=== PATIENT | male | born 1955 | race Caucasian/White ===

== ENCOUNTER 2018-05-18 14:28 | Inpatient (IN) | payer BC, SELFPAY ==
[2018-05-18] MEDS ORDERED: ACETAMINOPHEN 500 MG TAB PO PRN (15:22)
[2018-05-18] MEDS ORDERED: ONDANSETRON 4 MG/2 ML VIAL IV PRN (15:22)
[2018-05-18] MEDS ORDERED: IPRATROPIUM BROM 0.5MG/2.5ML NEB PRN (15:22)
[2018-05-18] MEDS ORDERED: ALBUTEROL 2.5 MG/3 ML NEB SOL NEB PRN (15:22)
[2018-05-18] MEDS ORDERED: LORazepam 2 MG/ML VIAL IV PRN (15:29)
[2018-05-18 15:57] VITALS: BMI 27.6
[2018-05-18] MEDS: NA CHLORIDE 0.9% 1,000 ML IV SCH (16:28)
[2018-05-18] MEDS: NICOTINE 21 MG/PAT TD SCH (16:28)
[2018-05-18] MEDS: ENOXAPARIN 40 MG/0.4 ML SQ SCH (16:28)
[2018-05-18] MEDS: PANTOPRAZOLE 40MG TABLET PO SCH (16:29)
[2018-05-18 16:48] LABS: ALT/SGPT 43 U/L (12-78); AST/SGOT 48 U/L (15-37); Alkaline Phosphatase 109 U/L (45-117); BUN Blood Urea Nitrogen 9 mg/dL (7-18); Bicarbonate 28 mmol/L (21-32); Bilirubin Total 0.9 mg/dL (0.2-1.0); CKMB Creatine Kinase MB 2.4 ng/mL (0.3-3.6); Creatine Phosphokinase 90 U/L (39-308); Glucose Level 120 mg/dL (74-106); Magnesium 2.2 mg/dL (1.8-2.4); Potassium 4.1 mmol/L (3.5-5.1); Protein, Total 8.3 g/dL (6.4-8.2); Sodium Level 140 mmol/L (136-145)
--- NOTE | 2018-05-18 16:58 | P.HP ---
Certification for Inpatient Patient admitted to: Observation With expected LOS: <2 Midnights Patient will require the following post-hospital care: None Practitioner: I am a practitioner with admitting privileges, knowledge of patient current condition, hospital course, and medical plan of care. Services: Services provided to patient in accordance with Admission requirements found in Title 42 Section 412.3 of the Code of Federal Regulations Patient History Date of Service: 05/18/18 Primary Care Provider: None Reason for admission: Left arm numbness History of Present Illness: 63-year-old male presented to outpatient emergency [facility] with numbness to the left arm. Patient denied any chest pain, shortness of breath, weakness or slurred speech. Symptoms occurred around 8:00 a.m.. He did not go to the emergency room until about 12 o'clock. Patient was evaluated at the facility. Initial CT scan unremarkable. Due to his multiple risk factors of alcohol and tobacco abuse patient was direct admitted for further evaluation. Patient had elevated blood pressure at the facility. ER physician did speak with Neurology who recommended direct admission. When I saw the patient, patient still reported some left arm numbness. No weakness noted. Patient was appropriate. Patient with history of alcohol and tobacco abuse. He drinks about 8 beers a day and smokes about 1-2 packs per day. Patient takes aspirin daily. Allergies No Known Allergies Allergy (Verified 05/18/18 15:36) Home Medications: Aspirin Chewable [Aspirin Chewable*] 1 tab PO DAILY 05/18/18 - Past Medical/Surgical History Has patient received pneumonia vaccine in the past: No Diabetic: No -: Cataracts -: Tobacco abuse -: Alcohol abuse -: Cataract sx Psychosocial/ Personal History: Patient is . He has 4 children. He works construction - Family History Mother -: Cancer - Social History Smoking Status: Current every day smoker Counseled patient to stop smoking for: less than 10 minutes Smoking therapy provided: Yes Patient receptive to therapy: Yes Alcohol use: Yes CD- Drugs: No Caffeine use: Yes Place of Residence: Home Review of Systems General: As per HPI Eyes: Unremarkable ENT: Unremarkable Respiratory: Unremarkable Cardiovascular: Unremarkable Gastrointestinal: Unremarkable Genitourinary: Unremarkable Musculoskeletal: Unremarkable Integumentary: Unremarkable Neurological: Numbness, As per HPI Lymphatics: Unremarkable Physical Examination - Vital Signs Temperature: 97.2 F Blood Pressure: 174/88 Pulse: 66 Respirations: 18 Pulse Ox (%): 95 - Physical Exam General: Alert, In no apparent distress, Oriented x3, Cooperative HEENT: Atraumatic, Normocephalic, PERRLA, Mucous membr. moist/pink Neck: Supple, No Thyromegaly Respiratory: Clear to auscultation bilaterally, Normal air movement Cardiovascular: Normal pulses, Regular rate/rhythm Gastrointestinal: Normal bowel sounds, Soft and benign, Non-distended, No tenderness, No masses, No rebound, No guarding Musculoskeletal: No erythema, No tenderness, No warmth Integumentary: No tenderness/swelling, No erythema, No warmth, No cyanosis Neurological: Normal speech, Normal strength at 5/5 x4 extr, Normal tone, Normal affect - Studies Laboratory Data (last 24 hrs) 05/18/18 16:00: Troponin I < 0.02 05/18/18 16:00: Sodium 140, Potassium 4.1, BUN 9, Creatinine 0.80, Glucose 120 H , Magnesium 2.2, Total Bilirubin 0.9, AST 48 H, ALT 43, Alkaline Phosphatase 109 Assessment and Plan - Problems (Diagnosis) (1) Numbness Current Visit: Yes Status: Acute Plan: Left arm numbness noted. Will order stroke protocol MRI, echocardiogram and carotid Doppler to further evaluate. Neurology is aware of the patient. Await further recommendations from neurology. The patient has been taking aspirin at home. Will continue with aspirin 81 mg daily. Will add Plavix, Lipitor and Lovenox. Will continue to monitor and reassess. (2) Hypertension Current Visit: Yes Status: Chronic Plan: Pressure elevated. Will start low-dose lisinopril Qualifiers: Hypertension type: essential hypertension Qualified Code(s): I10 - Essential (primary) hypertension (3) Alcohol abuse Current Visit: Yes Status: Chronic Plan: Will monitor for alcohol withdrawal. Will provide medication as needed. (4) Tobacco abuse Current Visit: Yes Status: Chronic Plan: Will address tobacco cessation in detail. Will provide nicotine patch. Discharge Plan: Home Plan to discharge in: 24 Hours - Advance Directives Does patient have a Living Will: No Does patient have a Durable POA for Healthcare: No - Code Status/Comfort Care Code Status Assessed: Yes (Patient full code.) Time Spent Managing Pts Care (In Minutes): 55
[2018-05-18 17:01] LABS: Absolute Monocytes 0.5 K/uL (0.1-1.3); Basophils % 0.6 % (0-1.3); Eosinophils % 6.6 % (0-4.4); Hematocrit 49.2 % (39.6-49.0); MCH 33.5 pg (27.0-35.0); MCV 98.4 fL (80-100); MPV 10.5 fL (7.6-11.3); Monocytes % 9.4 % (3.3-12.3)
--- NOTE | 2018-05-18 19:03 | RAD REPORT ---
EXAM DESCRIPTION: MRI - Brain W/Wo Cont - 05/18/2018 6:35 pm CLINICAL HISTORY: Left arm numbness since this morning COMPARISON: None TECHNIQUE: Axial, sagittal, and coronal magnetic images of the brain were obtained. 20 cc MultiHance is administered intravenously FINDINGS: Mild signal within periventricular and deep white matter likely represent ischemic changes secondary to small vessel disease. Diffusion-weighted/ADC mapping demonstrates a 3 millimeter area of abnormal signal compatible with an acute infarction. . The ventricles are normal caliber. No abnormal enhancement within the brain is seen. An extra-axial fluid collection is not noted. 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 May 18, 2018
--- NOTE | 2018-05-18 19:09 | RAD REPORT ---
EXAM DESCRIPTION: MRI - MRA Neck W/Wo Cont - 05/18/2018 6:35 pm CLINICAL HISTORY: Left arm numbness COMPARISON: None. TECHNIQUE: Magnetic resonance angiogram of the neck was performed. 20 cc MultiHance is administered intravenously. 3D MIP reconstruction was performed FINDINGS: The common carotid, internal carotid and external carotid arteries do not demonstrate a si gnificant stenosis. An aneurysm is not seen. The vertebral arteries are codominant without visualization of an abnormality. IMPRESSION: No significant abnormality is displayed
--- NOTE | 2018-05-18 19:11 | RAD REPORT ---
EXAM DESCRIPTION: MRI - MRA Head Wo Cont - 05/18/2018 6:34 pm CLINICAL HISTORY: Left arm numbness COMPARISON: None. TECHNIQUE: Magnetic resonance angiogram of the head was performed. 3D MIP reconstruction was performed FINDINGS: The visualized anterior cerebral, middle cerebral, posterior cerebral, basilar and distal internal carotid arteries do not demonstrate a significant stenosis. The A1 segment of the right ante rior cerebral artery is hypoplastic An aneurysm is not seen IMPRESSION: Unremarkable MRA head
--- NOTE | 2018-05-18 19:13 | RAD REPORT ---
EXAM DESCRIPTION: USCAROTID ARTERY BILATERAL05/18/2018 7:06 pm CLINICAL HISTORY: Left arm numbness FINDINGS: The velocity of the right internal carotid artery equals 116 cm/sec. The right ICA/CCA rat io 1.2 The velocity of the left internal carotid artery equals 123 cm/sec. The left ICA/CCA ratio 1.6 Mild plaque is present within the carotid arteries. The vertebral arteries demonstrate antegrade flow IMPRESSION: Mild plaque within the carotid arteries without evidence of a hemodynamically significan t stenosis
[2018-05-18] MEDS ORDERED: LISINOPRIL 5 MG TAB PO SCH (21:00)
[2018-05-18] MEDS ORDERED: ATORVASTATIN 40 MG TAB PO SCH (21:00)
--- NOTE | 2018-05-18 22:29 | RAD REPORT ---
EXAM DESCRIPTION: RADJuliat Pa And Lat (2 Views)05/18/2018 7:14 pm CLINICAL HISTORY: Cough COMPARISON: None FINDINGS: Small bilateral pulmonary nodules are suspected. A lung consolidation is not seen. The he art is normal size IMPRESSION: Small bilateral pulmonary nodules are suspected. CT chest is recommended for further jovan luation
[2018-05-19 04:20] LABS: Absolute Monocytes 0.5 K/uL (0.1-1.3); Absolute Neutrophil 3.3 K/uL (1.8-8.0); Basophils % 0.4 % (0-1.3); Eosinophils % 8.2 % (0-4.4); Lymphocytes % 18.9 % (15.3-44.8); MCH 34.2 pg (27.0-35.0); MCV 98.6 fL (80-100); MPV 9.7 fL (7.6-11.3); Monocytes % 8.9 % (3.3-12.3); RBC Red Blood Cell Count 4.56 M/uL (4.33-5.43)
[2018-05-19 04:34] LABS: BUN Blood Urea Nitrogen 11 mg/dL (7-18); Bicarbonate 28 mmol/L (21-32); Glucose Level 118 mg/dL (74-106); HDL Cholesterol 28 mg/dL (40-60); LDL Cholesterol, Calculated 51 (<130); Magnesium 1.9 mg/dL (1.8-2.4); Sodium Level 140 mmol/L (136-145)
[2018-05-19] MEDS: NA CHLORIDE 0.9% 1,000 ML IV SCH (05:07)
[2018-05-19 08:18] VITALS: BP 137/78; TEMP 97.3
[2018-05-19 08:24] VITALS: O2SAT 93
--- NOTE | 2018-05-19 08:42 | P.PN ---
Subjective Date of Service: 05/19/18 Primary Care Provider: None Chief Complaint: Left arm numbness Subjective: Improving Physical Examination - Vital Signs Temperature: 97.3 F Blood Pressure: 137/78 Pulse: 70 Respirations: 17 Pulse Ox (%): 92 - Physical Exam General: Alert, In no apparent distress, Oriented x3, Cooperative HEENT: Atraumatic Neck: Supple Respiratory: Clear to auscultation bilaterally, Normal air movement Cardiovascular: Normal pulses, Regular rate/rhythm Gastrointestinal: Normal bowel sounds, Soft and benign, Non-distended, No tenderness, No masses, No rebound, No guarding Musculoskeletal: No erythema, No tenderness, No warmth Integumentary: No tenderness/swelling, No erythema, No warmth, No cyanosis Neurological: Normal speech, Normal strength at 5/5 x4 extr, Normal affect, Abnormal sensation (Numbness to the left upper extremity still noted) - Studies Laboratory Data (last 24 hrs) 05/19/18 04:06: Sodium 140, Potassium 4.0, BUN 11, Creatinine 0.80, Glucose 118 H, Magnesium 1.9, Triglycerides 115, Cholesterol 102, HDL Cholesterol 28 L, Cholesterol/HDL Ratio 3.64 05/19/18 04:06: WBC 5.1, Hgb 15.6, Hct 45.0, Plt Count 81 L 05/18/18 16:00: Troponin I < 0.02 05/18/18 16:00: Sodium 140, Potassium 4.1, BUN 9, Creatinine 0.80, Glucose 120 H , Magnesium 2.2, Total Bilirubin 0.9, AST 48 H, ALT 43, Alkaline Phosphatase 109 05/18/18 16:00: WBC 4.9, Hgb 16.7, Hct 49.2 H, Plt Count 96 L Medications List Reviewed: Yes Assessment & Plan - Problems (Diagnosis) (1) Numbness Current Visit: Yes Status: Acute Plan: Left arm numbness noted. MRI showed 3 mm acute infarct involving the right thalamus. MRA and carotid Doppler showed no acute stenosis. Echocardiogram pending. Patient now on aspirin, Plavix, statin medication, and blood pressure medication. Patient on DVT prophylaxis Lovenox. Will physical therapy assess ambulation. Neurology consulted. Await further recommendations. Patient desires to go home. Will consider discharge if okay with neurology. (2) Hypertension Current Visit: Yes Status: Chronic Plan: Patient started on low-dose lisinopril Qualifiers: Hypertension type: essential hypertension Qualified Code(s): I10 - Essential (primary) hypertension (3) Alcohol abuse Current Visit: Yes Status: Chronic Plan: Will monitor for alcohol withdrawal. Continue to address alcohol cessation (4) Tobacco abuse Current Visit: Yes Status: Chronic Plan: Will continue to address tobacco cessation (5) Pulmonary nodules Current Visit: Yes Status: Chronic Plan: Chest x-ray showed pulmonary nodules. CT recommended. Will order CT to further assess. Patient likely has underlying COPD. Patient will need pulmonary function test as an outpatient to further assess. (6) Thrombocytopenia Current Visit: Yes Status: Acute Plan: Etiology unknown. Likely chronic in nature. Will send for peripheral smear. Discharge Plan: Home Plan to discharge in: 24 Hours Time Spent Managing Pts Care (In Minutes): 55
[2018-05-19] MEDS ORDERED: THIAMINE HCL 100 MG TABLET PO SCH (09:00)
[2018-05-19] MEDS ORDERED: FOLIC ACID 1 MG TABLET PO SCH (09:00)
[2018-05-19] MEDS ORDERED: CLOPIDOGREL 75 MG TABLET PO SCH (09:00)
[2018-05-19] MEDS: ENOXAPARIN 40 MG/0.4 ML SQ SCH (09:00)
[2018-05-19] MEDS ORDERED: ASPIRIN EC 81 MG TAB PO SCH (09:00)
--- NOTE | 2018-05-19 10:27 | RAD REPORT ---
EXAM DESCRIPTION: CT - Thorax Wo Con - 05/19/2018 9:51 am CLINICAL HISTORY: Abnormal chest film, possible pulmonary nodules. COMPARISON: None. TECHNIQUE: Axial 5 mm thick images of the chest were obtained without IV contrast. All CT scans are performed using dose optimization technique as appropriate and may include automated exposure control or mA/KV adjustment according to patient size. FINDINGS: Several small calcified granulomas are scattered in the lung parenchyma. No noncalcified m ass or worrisome mass of the lung parenchyma. No focal consolidation. Patient has mild to moderate em physema change scattered in the lung parenchyma. No pleural thickening or pleural effusion. No pneumo thorax. Numerous calcified mediastinal and hilar lymph nodes are present. No gross aortic or pulmonary artery finding suspected. No cardiomegaly or pericardial effusion. No chest wall mass or abnormal axillary lymphadenopathy. Thoracic spine degenerative changes are pres ent. Limited imaging of the upper abdomen shows grossly abnormal liver. Caudate and left lobe regions are enlarged and there is a diffuse nodularity to the liver capsule. No focal liver lesions seen. This is not a full assessment of the liver. Spleen is upper normal. Circumferential wall thickening of the e ntire esophagus is noted. A discrete esophageal mass is not seen. A few prominent veins are seen near the GE junction. IMPRESSION: Patient has extensive old granulomatous disease seen as lung parenchymal calcified nodul es and numerous calcified mediastinal and hilar lymph nodes. No worrisome lung parenchymal mass or lymphadenopathy. The patient has mild to moderate emphysema ivett nge throughout the lung parenchyma. Advanced cirrhotic changes in the liver. Spleen is upper normal and there are a few prominent veins a t the GE junction. Mild circumferential wall thickening along the entire length of the esophagus. No focal esophageal ma ss.
[2018-05-19] MEDS: PANTOPRAZOLE 40MG TABLET PO SCH (10:45)
[2018-05-19] MEDS: NICOTINE 21 MG/PAT TD SCH (10:45)
--- NOTE | 2018-05-19 12:57 | P.DS ---
Admission Date: 05/19/18 Discharge Date: 05/19/18 Primary Care Provider: None Disposition: ROUTINE DISCHARGE Discharge Condition: GOOD Reason for Admission: Left arm numbness Procedures: MRI brain: FINDINGS: Mild signal within periventricular and deep white matter likely represent ischemic changes secondary to small vessel disease. Diffusion-weighted/ADC mapping demonstrates a 3 millimeter area of abnormal signal compatible with an acute infarction. . The ventricles are normal caliber. No abnormal enhancement within the brain is seen. An extra-axial fluid collection is not noted. Moderate ethmoid sinusitis is present IMPRESSION: 3 millimeter acute infarct involving the right thalamus MRA brain: FINDINGS: The common carotid, internal carotid and external carotid arteries do not demonstrate a significant stenosis. An aneurysm is not seen. The vertebral arteries are codominant without visualization of an abnormality. IMPRESSION: No significant abnormality is displayed FINDINGS: The visualized anterior cerebral, middle cerebral, posterior cerebral , basilar and distal internal carotid arteries do not demonstrate a significant stenosis. The A1 segment of the right anterior cerebral artery is hypoplastic An aneurysm is not seen IMPRESSION: Unremarkable MRA head Echocardiogram: Done. Final results pending at discharge Carotid Doppler: FINDINGS: The velocity of the right internal carotid artery equals 116 cm/sec. The right ICA/CCA ratio 1.2 The velocity of the left internal carotid artery equals 123 cm/sec. The left ICA /CCA ratio 1.6 Mild plaque is present within the carotid arteries. The vertebral arteries demonstrate antegrade flow IMPRESSION: Mild plaque within the carotid arteries without evidence of a hemodynamically significant stenosis CT chest: COMPARISON: None. TECHNIQUE: Axial 5 mm thick images of the chest were obtained without IV contrast. All CT scans are performed using dose optimization technique as appropriate and may include automated exposure control or mA/KV adjustment according to patient size. FINDINGS: Several small calcified granulomas are scattered in the lung parenchyma. No noncalcified mass or worrisome mass of the lung parenchyma. No focal consolidation. Patient has mild to moderate emphysema change scattered in the lung parenchyma. No pleural thickening or pleural effusion. No pneumothorax. Numerous calcified mediastinal and hilar lymph nodes are present. No gross aortic or pulmonary artery finding suspected. No cardiomegaly or pericardial effusion. No chest wall mass or abnormal axillary lymphadenopathy. Thoracic spine degenerative changes are present. Limited imaging of the upper abdomen shows grossly abnormal liver. Caudate and left lobe regions are enlarged and there is a diffuse nodularity to the liver capsule. No focal liver lesions seen. This is not a full assessment of the liver. Spleen is upper normal. Circumferential wall thickening of the entire esophagus is noted. A discrete esophageal mass is not seen. A few prominent veins are seen near the GE junction. IMPRESSION: Patient has extensive old granulomatous disease seen as lung parenchymal calcified nodules and numerous calcified mediastinal and hilar lymph nodes. No worrisome lung parenchymal mass or lymphadenopathy. The patient has mild to moderate emphysema change throughout the lung parenchyma. Advanced cirrhotic changes in the liver. Spleen is upper normal and there are a few prominent veins at the GE junction. Mild circumferential wall thickening along the entire length of the esophagus. No focal esophageal mass. - Problems (1) Numbness Current Visit: Yes Status: Acute (2) Hypertension Current Visit: Yes Status: Chronic Qualifiers: Hypertension type: essential hypertension Qualified Code(s): I10 - Essential (primary) hypertension (3) Alcohol abuse Current Visit: Yes Status: Chronic (4) Tobacco abuse Current Visit: Yes Status: Chronic (5) Pulmonary nodules Current Visit: Yes Status: Chronic (6) Thrombocytopenia Current Visit: Yes Status: Acute (7) CVA (cerebral vascular accident) Current Visit: Yes Status: Acute Qualifiers: CVA mechanism: other Qualified Code(s): I63.8 - Other cerebral infarction (8) GERD with esophagitis Current Visit: Yes Status: Suspected (9) Cirrhosis Current Visit: Yes Status: Chronic Qualifiers: Hepatic cirrhosis type: alcoholic cirrhosis Ascites presence: without ascites Qualified Code(s): K70.30 - Alcoholic cirrhosis of liver without ascites (10) COPD (chronic obstructive pulmonary disease) Current Visit: Yes Status: Suspected Qualifiers: COPD type: chronic bronchitis Brief History of Present Illness: 63-year-old male presented to outpatient emergency room-[place] with numbness to the left arm. Patient denied any chest pain, shortness of breath, weakness or slurred speech. Symptoms occurred around 8:00 a.m.. He did not go to the emergency room until about 12 o'clock. Patient was evaluated at the facility. Initial CT scan unremarkable. Due to his multiple risk factors of alcohol and tobacco abuse patient was direct admitted for further evaluation. Patient had elevated blood pressure at the facility. ER physician did speak with Neurology who recommended direct admission. When I saw the patient, patient still reported some left arm numbness. No weakness noted. Patient was appropriate. Patient with history of alcohol and tobacco abuse. He drinks about 8 beers a day and smokes about 1-2 packs per day. Patient takes aspirin daily. Hospital Course: Patient presented with left arm numbness. Patient evaluated for CVA. Patient had MRI done showing 3 mm acute infarct involving the right thalamus. Patient previously on aspirin 81 mg daily. Patient with history of alcohol and tobacco abuse. Patient did well in the course of his stay. Case discussed in detail with Neurology. Echocardiogram done and was pending at discharge. Carotid Doppler showed no acute stenosis but plaque noted. MRA of brain and neck showed no significant stenosis. At discharge patient will need continue with aspirin 81 mg daily and Plavix 75 mg 1 pill daily. Alcohol and tobacco cessation was addressed in detail. Patient will also continue with folic acid 1 mg daily and thiamine 100 mg daily. Recommendation is for the patient follow up with neurology as an outpatient to further monitor. Patient has hypertension. Initial blood pressures were elevated. Medication started during his stay. At discharge he will continue with lisinopril 5 mg 1 pill daily. Recommendation is to maintain blood pressures less 150/80. Further adjustment can be done by his PCP. Patient started on statin medication due to CVA and carotid arterial disease. At discharge patient will continue with Lipitor 40 mg daily. Further adjustment in medication may be required as the patient has liver cirrhosis related to alcohol. Recommendation to recheck lab-CMP in 1 week to monitor his progress. Patient found to have liver cirrhosis likely from alcohol abuse. Patient drinks heavily. Recommendation is to wean off alcohol entirely. Lab hepatitis panel will be obtained prior to discharge. Follow up will be important. Recommendation is for the patient to follow up with GI as an outpatient to further monitor and address. Education on cirrhosis with provided. Patient found to have pulmonary nodules. CT scan showed chronic changes but no significant abnormality or mass. Patient likely has underlying COPD. Recommendations for the patient to follow up with pulmonology as an outpatient to further assess. Patient may require pulmonary function tests as he may require medication for COPD in the future. Patient will be provided Pro air 2 puffs 3 times a day as needed for shortness of breath. Tobacco cessation addressed in detail. Patient had thrombocytopenia likely from his alcoholic cirrhosis. Recommendation is to recheck CBC in 1 week further monitor. Patient will be on aspirin and Plavix, so this will need to be monitored. Patient also had thickening to the esophagus likely esophagitis with GERD noted on CT scan. With his alcohol history, it will be important for the patient to follow up with GI as an outpatient. Recommendations for the patient follow up with GI for possible EGD evaluation. At discharge patient will continue with Protonix 40 mg 1 pill once daily. Vital Signs/Physical Exam: Temp Pulse Resp BP Pulse Ox 97.3 F 70 17 137/78 92 05/19/18 08:42 05/19/18 08:42 05/19/18 08:42 05/19/18 08:42 05/19/18 08:42 General: Alert, In no apparent distress, Oriented x3, Cooperative HEENT: Atraumatic, Mucous membr. moist/pink Neck: Supple Respiratory: Clear to auscultation bilaterally, Normal air movement Cardiovascular: Normal pulses, Regular rate/rhythm Gastrointestinal: Normal bowel sounds, Soft and benign, Non-distended, No tenderness, No masses, No rebound, No guarding Musculoskeletal: No erythema, No tenderness, No warmth Integumentary: No tenderness/swelling, No erythema, No warmth, No cyanosis Neurological: Normal speech, Normal strength at 5/5 x4 extr, Normal tone, Normal affect, Abnormal sensation (Numbness to the left upper extremity) Laboratory Data at Discharge: WBC 5.1 K/uL (4.3-10.9) 05/19/18 04:06 Hgb 15.6 g/dL (13.6-17.9) 05/19/18 04:06 Hct 45.0 % (39.6-49.0) 05/19/18 04:06 Plt Count 81 K/uL (152-406) L 05/19/18 04:06 Sodium 140 mmol/L (136-145) 05/19/18 04:06 Potassium 4.0 mmol/L (3.5-5.1) 05/19/18 04:06 BUN 11 mg/dL (7-18) 05/19/18 04:06 Creatinine 0.80 mg/dL (0.55-1.3) 05/19/18 04:06 Glucose 118 mg/dL (74-106) H 05/19/18 04:06 Magnesium 1.9 mg/dL (1.8-2.4) 05/19/18 04:06 Total Bilirubin 0.9 mg/dL (0.2-1.0) 05/18/18 16:00 AST 48 U/L (15-37) H 05/18/18 16:00 ALT 43 U/L (12-78) 05/18/18 16:00 Alkaline Phosphatase 109 U/L (45-117) 05/18/18 16:00 Troponin I < 0.02 ng/mL (0.0-0.045) 05/18/18 16:00 Triglycerides 115 mg/dL (<150) 05/19/18 04:06 Cholesterol 102 mg/dL (<200) 05/19/18 04:06 HDL Cholesterol 28 mg/dL (40-60) L 05/19/18 04:06 Cholesterol/HDL Ratio 3.64 05/19/18 04:06 Home Medications: Albuterol Sulfate [Proair Hfa] 8.5 gm IH TID PRN #1 [id number].[email or web address] 05/19/18 Aspirin Chewable [Aspirin Chewable*] 1 tab PO DAILY #30 tab.chew 05/19/18 Atorvastatin Calcium [Lipitor] 40 mg PO BEDTIME #30 tab 05/19/18 Clopidogrel Bisulfate [Plavix*] 75 mg PO DAILY #30 tablet 05/19/18 Folic Acid 1 mg PO DAILY #30 tablet 05/19/18 Lisinopril [Prinivil*] 5 mg PO BEDTIME #30 tab 05/19/18 Pantoprazole [Protonix Tab*] 40 mg PO ACB #30 tab 05/19/18 Thiamine HCl [Vitamin B-1*] 100 mg PO DAILY #30 tablet 05/19/18 New Medications: Albuterol Sulfate [Proair Hfa] 8.5 gm IH TID PRN #1 hfa.[email or web address] PRN Reason: Shortness Of Breath Aspirin Chewable [Aspirin Chewable*] 1 tab PO DAILY #30 tab.chew Atorvastatin Calcium [Lipitor] 40 mg PO BEDTIME #30 tab Clopidogrel Bisulfate [Plavix*] 75 mg PO DAILY #30 tablet Folic Acid 1 mg PO DAILY #30 tablet Lisinopril [Prinivil*] 5 mg PO BEDTIME #30 tab Pantoprazole [Protonix Tab*] 40 mg PO ACB #30 tab Thiamine HCl [Vitamin B-1*] 100 mg PO DAILY #30 tablet Patient Discharge Instructions: 1. Patient will need to establish care with a PCP to follow up this hospitalization. 2. Patient presented with left arm numbness. Patient evaluated for CVA. Patient had MRI done showing 3 mm acute infarct involving the right thalamus. Patient previously on aspirin 81 mg daily. Patient with history of alcohol and tobacco abuse. Patient did well in the course of his stay. Case discussed in detail with Neurology. Echocardiogram done and was pending at discharge. Carotid Doppler showed no acute stenosis but plaque noted. MRA of brain and neck showed no significant stenosis. At discharge patient will need continue with aspirin 81 mg daily and Plavix 75 mg 1 pill daily. Alcohol and tobacco cessation was addressed in detail. Patient will also continue with folic acid 1 mg daily and thiamine 100 mg daily. Recommendation is for the patient follow up with neurology as an outpatient to further monitor. 3. Patient has hypertension. Initial blood pressures were elevated. Medication started during his stay. At discharge he will continue with lisinopril 5 mg 1 pill daily. Recommendation is to maintain blood pressures less 150/80. Further adjustment can be done by his PCP. 4. Patient started on statin medication due to CVA and carotid arterial disease. At discharge patient will continue with Lipitor 40 mg daily. Further adjustment in medication may be required as the patient has liver cirrhosis related to alcohol. Recommendation to recheck lab-CMP in 1 week to monitor his progress. 5. Patient found to have liver cirrhosis likely from alcohol abuse. Patient drinks heavily. Recommendation is to wean off alcohol entirely. Lab hepatitis panel will be obtained prior to discharge. Follow up will be important. Recommendation is for the patient to follow up with GI as an outpatient to further monitor and address. Education on cirrhosis with provided. 6. Patient found to have pulmonary nodules. CT scan showed chronic changes but no significant abnormality or mass. Patient likely has underlying COPD. Recommendations for the patient to follow up with pulmonology as an outpatient to further assess. Patient may require pulmonary function tests as he may require medication for COPD in the future. Patient will be provided Pro air 2 puffs 3 times a day as needed for shortness of breath. Tobacco cessation addressed in detail. 7. Patient had thrombocytopenia likely from his alcoholic cirrhosis. Recommendation is to recheck CBC in 1 week further monitor. Patient will be on aspirin and Plavix, so this will need to be monitored. 8. Patient also had thickening to the esophagus likely esophagitis with GERD noted on CT scan. With his alcohol history, it will be important for the patient to follow up with GI as an outpatient. Recommendations for the patient follow up with GI for possible EGD evaluation. At discharge patient will continue with Protonix 40 mg 1 pill once daily. Diet: AHA Activity: Ad kisha Time spent managing pt's care (in minutes): 55
--- NOTE | 2018-05-19 16:32 | EKG ---
Test Date: 2018-05-18 Test Time: 15:44:51 Manufacturing Engineering Manager: OMARI MEASUREMENT RESULTS: Intervals: Rate: 67 NH: 162 QRSD: 96 QT: 414 QTc: 437 [place]: P: 57 NH: 162 QRS: -6 T: 17 INTERPRETIVE STATEMENTS: Normal sinus rhythm Normal ECG No previous ECG available for comparison Electronically Signed On 05-19-18 16:28:07 CDT by Garcia Kahn
--- NOTE | 2018-05-19 16:56 | ECHO ---
HEIGHT: 6 ft 2 in WEIGHT: 215 lb 0 oz DATE OF STUDY: 05/19/[address]: David Hammond DO 2-DIMENSIONAL: YES M.MODE: YES DOPPLER: YES COLOR FLOW: YES TDS: PORTABLE: DEFINITY: BUBBLE STUDY: DIAGNOSIS: STROKE CARDIAC HISTORY: CATHERIZATION: NO SURGERY: NO PROSTHETIC VALVE: NO PACEMAKER: NO MEASUREMENTS (cm) DIASTOLIC (NORMALS) SYSTOLIC (NORMALS) IVSd 1.0 (0.6-1.2) LA Diam 3.4 (1.9-4.0) LVEF 60% LVIDd 4.5 (3.5-5.7) LVIDs 3.1 (2.0-3.5) %FS 32% LVPWd 1.2 (0.6-1.2) Ao Diam 2.8 (2.0-3.7) 2 DIMENSIONAL ASSESSMENT: RIGHT ATRIUM: NORMAL LEFT ATRIUM: NORMAL RIGHT VENTRICLE: NORMAL LEFT VENTRICLE: NORMAL TRICUSPID VALVE: NORMAL MITRAL VALVE: NORMAL PULMONIC VALVE: NORMAL AORTIC VALVE: NORMAL PERICARDIAL EFFUSION: NONE AORTIC ROOT: NORMAL LEFT VENTRICULAR WALL MOTION: NORMAL DOPPLER/COLOR FLOW: NORMAL COMMENTS: NORMAL LEFT VENTRICULAR SIZE AND FUNCTION. NO THROMBUS. NO VEGETATION. NORMAL DOPPLER. TECHNOLOGIST: NOAH ORTIZ
[2018-05-21 15:53] LABS: HIV 1/2 Antibody Diff Not indicated.; HIV AG/AB 4TH GEN Non-reactive (Non-reactive)
[2018-05-21 17:49] LABS: HBsAG Nonreactive (Nonreactive); Hepatitis A IgM Antibody Nonreactive
== END 2018-05-19 15:03 | disposition home or self-care (01) | DRG 66 ==
LOC: 4TH 15:21 → OBSVTOIN 05-19 07:50 → INTOOBSV 05-19 07:50 → UNDODISIN 05-19 15:03
PROVIDERS: ADMIT Family Medicine; ATTEND Family Medicine
DX: I63.9 Cerebral infarction, unspecified (principal); I10 Essential (primary) hypertension; R29.700 NIHSS score 0; F17.210 Nicotine dependence, cigarettes, uncomplicated; D69.6 Thrombocytopenia, unspecified; Z79.82 Long term (current) use of aspirin; F10.10 Alcohol abuse, uncomplicated; K70.30 Alcoholic cirrhosis of liver without ascites; K21.0 Gastro-esophageal reflux disease with esophagitis; R91.8 Other nonspecific abnormal finding of lung field; J44.9 Chronic obstructive pulmonary disease, unspecified
CPT/HCPCS: 36415; 70544; 70549; 70553; 71046; 71250; 80048; 80053; 80061; 80074; 82550; 82553; 82962; 83735; 84443; 84484; 85025; 87389; 93005; 93306; 93880; 97163; A9577; G0378; J1650; J7030